=== PATIENT | female | born 1950 | race Caucasian/White ===

== ENCOUNTER 2025-06-13 14:50 | Emergency (ER) | payer OTHER ==
[~2025-06-13] VITALS: Ht 162.6 cm; Wt 70.5 kg
[2025-06-13 14:52] VITALS: BP 109/64; PULSE 96; RESP 18; TEMP 98.4; O2SAT 98
[2025-06-13] MEDS ORDERED: ATOR10TA PO (15:00)
[2025-06-13] MEDS ORDERED: FENO54TA7 PO (15:00)
[2025-06-13] MEDS ORDERED: TRAM50TA5 PO (17:19)
== END 2025-06-13 17:26 | disposition home or self-care (01) ==
LOC: EMS 14:50
DX: S82.292A Other fracture of shaft of left tibia, initial encounter for closed fracture (principal); S80.02XA Contusion of left knee, initial encounter; S63.592A Other specified sprain of left wrist, initial encounter; E78.00 Pure hypercholesterolemia, unspecified; Z79.899 Other long term (current) drug therapy; W18.39XA Other fall on same level, initial encounter; Y93.89 Activity, other specified; Y92.89 Other specified places as the place of occurrence of the external cause; Y99.8 Other external cause status
CPT/HCPCS: 29505; 99284; 73110-TC; 73562-TC; Z7502; Z7610